=== PATIENT | female | born 1955 | race Caucasian/White ===

== ENCOUNTER 2023-02-09 04:10 | Day surgery (SDC) | payer OTHER ==
[2023-02-07 13:15] VITALS: BMI 34.0
[2023-02-09 09:52] VITALS: TEMP 97.8
[2023-02-09 10:40] VITALS: BP 107/61; PULSE 72; RESP 18
== END 2023-02-09 10:30 | disposition home or self-care (01) ==
LOC: JASU-ENDO 04:10
PROVIDERS: ATTEND Internal Medicine Gastroenterology
PROC: 0DBL8ZX Excision of Transverse Colon, Via Natural or Artificial Opening Endoscopic, Diagnostic (ICD-10-PCS; principal; 2023-02-09 09:00)
DX: Z12.11 Encounter for screening for malignant neoplasm of colon (principal); D12.3 Benign neoplasm of transverse colon; K64.8 Other hemorrhoids; Z86.010 Personal history of colon polyps
CPT/HCPCS: 88305-TC